=== PATIENT | female | born 1955 | race Caucasian/White ===

== ENCOUNTER → 2017-09-28 | Outpatient (CLI) | payer MEDICARE, OTHER ==
[~2017-09-28] MED LIST: ASPIRIN E.C. 8181 MG PO; AVINZA30 M1 PO; AVINZA60 MG PO; CIPRO 500MG TA500 MG PO; COLACE 100100 MG/CAP PO; COLESTIPOL1 GM PO; CRANBERRY FRUI405 MG PO; CRANBERRY1000 MG PO; CRESTOR5 MG PO; DAILY MULTI VIT1 TAB PO; FERROUS SU325 MG/TAB PO; FLAGYL500 MG PO; GLUCOPHAGE500 MG/TAB PO; HUMALOG100 U/ML SQ; LANTUS100 U/ML SC; LANTUS100 U/ML SQ; LASIX 20MG TABL20 MG PO; LISINOPRIL5 MG PO; LORTAB 10/500 51 TAB PO; LORTAB 5/500 501 TAB PO; LYRICA 25MG CAP25 MG PO; MIRALAX17 GM/DOSE PO; MULTIVITAMIN FO1 CAP PO; NEXIUM 40MG40 MG PO; NEXIUM40 MG PO; NORCO 325 MG-51 TAB PO; NORCO 325 MG-7.1 TAB PO; OYSTER CALCIUM1 TA4 PO; OYSTER SHELL CA1 TA6 PO; PERCOCET 325 MG1 TA2 PO; ROXICODONE 55 MG/TAB PO; TOPAMAX25 M1 PO; TOPAMAX50 MG PO; VITAMIN C500 MG PO; [UNRECOGNIZED DRUG - OTHER]
== END ==
LOC: MC.RAD 09:57
DX: Z12.31 Encounter for screening mammogram for malignant neoplasm of breast (principal)

== ENCOUNTER → 2018-03-23 | Outpatient (CLI) | payer MEDICARE, OTHER | LOC: COL.RAD 09:26 | DX: R59.0 Localized enlarged lymph nodes (principal); K76.9 Liver disease, unspecified; K57.30 Diverticulosis of large intestine without perforation or abscess without bleeding; Z90.410 Acquired total absence of pancreas | CPT/HCPCS: Q9967 ==

== ENCOUNTER → 2018-07-04 | Outpatient (CLI) | payer MEDICARE, OTHER | LOC: COL.RAD 10:00 | DX: M51.36 Other intervertebral disc degeneration, lumbar region (principal); J98.4 Other disorders of lung; R59.0 Localized enlarged lymph nodes; R16.0 Hepatomegaly, not elsewhere classified; N28.1 Cyst of kidney, acquired; M46.96 Unspecified inflammatory spondylopathy, lumbar region; Z85.89 Personal history of malignant neoplasm of other organs and systems; Z90.49 Acquired absence of other specified parts of digestive tract; Z90.410 Acquired total absence of pancreas; Z90.710 Acquired absence of both cervix and uterus; Z90.81 Acquired absence of spleen; Z98.890 Other specified postprocedural states | CPT/HCPCS: Q9967 ==

== ENCOUNTER → 2018-09-20 | Outpatient (CLI) | payer MEDICARE, OTHER | LOC: COL.RAD 07:47 | DX: M25.552 Pain in left hip (principal) | CPT/HCPCS: J3301; Q9967 ==

== ENCOUNTER → 2019-02-21 | Outpatient (CLI) | payer MEDICARE, OTHER | LOC: COL.RAD 08:06 | DX: C7A.098 Malignant carcinoid tumors of other sites (principal); C78.7 Secondary malignant neoplasm of liver and intrahepatic bile duct; Z90.49 Acquired absence of other specified parts of digestive tract; Z90.81 Acquired absence of spleen | CPT/HCPCS: Q9967 ==

== ENCOUNTER → 2020-02-04 | Outpatient (CLI) | payer MEDICARE, OTHER | LOC: MC.RAD 12-03 11:00 | DX: Z12.31 Encounter for screening mammogram for malignant neoplasm of breast (principal) ==

== ENCOUNTER → 2020-02-25 | Outpatient (CLI) | payer MEDICARE, OTHER | LOC: COL.RAD 02-24 08:30 | DX: C7A.098 Malignant carcinoid tumors of other sites (principal); R19.09 Other intra-abdominal and pelvic swelling, mass and lump; Z90.710 Acquired absence of both cervix and uterus; Z96.642 Presence of left artificial hip joint | CPT/HCPCS: Q9967 ==

== ENCOUNTER 2020-04-02 06:57 | Day surgery (SDC) | payer MEDICARE, OTHER ==
[~2020-04-02] VITALS: Ht 152.4 cm; Wt 88.4 kg
[2020-04-02] MEDS ORDERED: CYMBALTA 30MG30 MG PO (07:50)
[2020-04-02] MEDS ORDERED: ZETIA 10MG TAB10 MG PO (07:51)
[2020-04-02] MEDS ORDERED: NORCO 325 MG-101 TAB PO (07:52)
[2020-04-02] MEDS ORDERED: NOVOLOG FLEX100 U/ML SQ (07:52)
[2020-04-02] MEDS ORDERED: CLARITIN 1010 MG/TAB PO (07:53)
[2020-04-02] MEDS ORDERED: LANTUS SOLOS100 U/ML SQ (07:53)
[2020-04-02] MEDS ORDERED: HYZAAR 50-12.1 UDTAB PO (07:54)
[2020-04-02] MEDS ORDERED: TOPAMAX 100MG100 M1 PO (07:55)
[2020-04-02] MEDS ORDERED: MAGOX PO (07:55)
[2020-04-02] MEDS ORDERED: IMITREX 25MG TA25 MG PO (07:55)
[2020-04-02] MEDS ORDERED: TURMERIC500 MG PO (07:56)
[2020-04-02] MEDS ORDERED: MASON NATURAL2000 IU PO (07:56)
[2020-04-02] MEDS ORDERED: VITAMIN C500 MG PO (07:56)
[2020-04-02 07:57] VITALS: BP 148/77; PULSE 92; TEMP 98.4
--- NOTE | 2020-04-02 08:20 | NUR ---
Patient's blood glucose reading was 254 when checked pre-op. This result with told to Archie Mann CRNA and no further orders received at this time.
--- NOTE | 2020-04-02 09:07 | NUR ---
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 She is escorted to the restroom by staff, voids, and returns to room.
[2020-04-02 12:00] VITALS: BP 119/56; PULSE 86; TEMP 98.5
--- NOTE | 2020-04-02 12:00 | NUR ---
Patient arrives to [facility] bay 5 via cart, accompanied by MERCHANDISER RETAIL REPRESENTATIVE Corina. She is alert, oriented. She has pain 7/10, stabbing, at the surgical site. She is resting in her bed. Her daughter is at the bedside. Monitoring is applied - VSS and WNL on 2L nasal cannula. Her operative site is convered with a dry dressing, scant amount of bloody drainage on the dressing. Stable from OR per MERCHANDISER RETAIL REPRESENTATIVE. Lights are dimmed for comfort. Will continue to monitor.
[2020-04-02 12:15] VITALS: BP 111/46; PULSE 86
[2020-04-02 12:30] VITALS: BP 127/53; PULSE 88
--- NOTE | 2020-04-02 12:30 | NUR ---
VSS and WNL on room air. Patient is eating a muffin/drinking water. She requests and receives milk and crackers. She ambulates to the restroom, voids large amount clear/yellow urine, and returns to room. Her gait is steady with 1:1 assist. Her surgical dressing remains unchanged.
[2020-04-02 12:45] VITALS: BP 117/48; PULSE 91
--- NOTE | 2020-04-02 12:45 | NUR ---
VSS on room air. Patient is given PO [place] for pain. She is resting comfortably. She denies needs at this time.
[2020-04-02 13:00] VITALS: BP 117/45; PULSE 90
--- NOTE | 2020-04-02 13:00 | NUR ---
VSS and WNL on room air. Resting comfortably in room. Given more milk.
--- NOTE | 2020-04-02 13:30 | NUR ---
Patient ambulates to the restroom with steady gait, voids, and returns to room.
--- NOTE | 2020-04-02 13:47 | NUR ---
Discharge criteria has been met. Discharge instructions are discussed with the patient and her daughter. They deny any questions and verbalize understanding. PIV is removed with catheter intact and hemostasis achieved. THe patient is changing to her clothing with her daughter's assistance.
--- NOTE | 2020-04-02 14:00 | NUR ---
Patient is escorted to the exit via wheelchair. She is discharged to home with ride in private vehicle at 1400.
== END 2020-04-02 14:00 | disposition home or self-care (01) ==
LOC: SDCO 06:57
DX: R22.2 Localized swelling, mass and lump, trunk (principal); C7B.8 Other secondary neuroendocrine tumors; C7A.8 Other malignant neuroendocrine tumors; E11.9 Type 2 diabetes mellitus without complications; K21.9 Gastro-esophageal reflux disease without esophagitis; R05 Cough; I10 Essential (primary) hypertension; G43.909 Migraine, unspecified, not intractable, without status migrainosus; F17.210 Nicotine dependence, cigarettes, uncomplicated; E78.00 Pure hypercholesterolemia, unspecified; Z90.49 Acquired absence of other specified parts of digestive tract; Z79.899 Other long term (current) drug therapy; Z88.5 Allergy status to narcotic agent
CPT/HCPCS: J1170; J2250; J2405; J2704; J3010; J7030

== ENCOUNTER → 2020-06-02 | Outpatient (CLI) | payer MEDICARE, OTHER ==
[~2020-06-02] MED LIST changes: +CLARITIN 1010 MG/TAB PO; +CYMBALTA 30MG30 MG PO; +HYZAAR 50-12.1 UDTAB PO; +IMITREX 25MG TA25 MG PO; +LANTUS SOLOS100 U/ML SQ; +MAGOX PO; +MASON NATURAL2000 IU PO; +NORCO 325 MG-101 TAB PO; +NOVOLOG FLEX100 U/ML SQ; +TOPAMAX 100MG100 M1 PO; +TURMERIC500 MG PO; +ZETIA 10MG TAB10 MG PO
== END ==
LOC: COL.RAD 08:04
DX: C7A.8 Other malignant neuroendocrine tumors (principal); C78.7 Secondary malignant neoplasm of liver and intrahepatic bile duct; Z98.890 Other specified postprocedural states
CPT/HCPCS: Q9967

== ENCOUNTER → 2020-09-09 | Outpatient (CLI) | payer MEDICARE, OTHER ==
[~2020-09-09] MED LIST changes: +DIFLUCAN200 MG PO
== END ==
LOC: DIA.ED
DX: E11.9 Type 2 diabetes mellitus without complications (principal); Z79.4 Long term (current) use of insulin; E66.8 Other obesity

== ENCOUNTER → 2020-09-16 | Outpatient (CLI) | payer MEDICARE, OTHER ==
[~2020-09-16] MED LIST changes: +NOVOLIN R100 UNIT/1 SQ
== END ==
LOC: DIA.ED 08:33
DX: E11.9 Type 2 diabetes mellitus without complications (principal); Z79.4 Long term (current) use of insulin
CPT/HCPCS: G0270

== ENCOUNTER → 2020-09-22 | Outpatient (CLI) | payer MEDICARE, OTHER ==
[~2020-09-22] MED LIST changes: -NOVOLIN R100 UNIT/1 SQ
== END ==
LOC: COL.RAD 07:56
DX: C7A.098 Malignant carcinoid tumors of other sites (principal); C78.7 Secondary malignant neoplasm of liver and intrahepatic bile duct; E11.9 Type 2 diabetes mellitus without complications; Z90.49 Acquired absence of other specified parts of digestive tract; Z90.89 Acquired absence of other organs
CPT/HCPCS: Q9967

== ENCOUNTER → 2020-10-14 | Outpatient (CLI) | payer MEDICARE, OTHER ==
[~2020-10-14] MED LIST changes: +NOVOLIN R100 UNIT/1 SQ
== END ==
LOC: DIA.ED
DX: E11.9 Type 2 diabetes mellitus without complications (principal); Z79.4 Long term (current) use of insulin; E66.8 Other obesity

== ENCOUNTER 2020-11-01 20:09 | Inpatient (IN) | payer MEDICARE, OTHER ==
[~2020-11-01] VITALS: Ht 144.8 cm; Wt 85.0 kg
[~2020-11-01 20:09] MED LIST changes: -NOVOLIN R100 UNIT/1 SQ
[2020-11-01 20:53] LABS: BASO % 0.3 % (0.0-2.0); GRAN # 6.8 (1.4-6.5); GRAN % 70.3 % (42.2-75.2); HEMATOCRIT 45.1 % (37.0-47.0); LYMPH # 2.5 (1.2-3.4); LYMPH % 26.1 % (20.0-51.0); MEAN CELL VOLUME 88 fl (80.0-100.0); MEAN CORPUSCULAR HEMOGLOBIN 29 pg (27.0-31.0); MEAN CORPUSCULAR HGB CONC 33 g/dl (33.0-37.0); MEAN PLATELET VOLUME 9.2 fl (7.4-10.4); MONO # 0.3 (0.1-0.6); PLATELET COUNT 598 K/mm3 (130-400); RED BLOOD COUNT 5.13 M/mm3 (4.10-5.30); REDCELL DISTRIBUTION WIDTH-CV 14.1 % (11.5-14.5)
[2020-11-01 21:02] LABS: ALANINE AMINOTRANSFERASE 37 U/L (4-34); ALBUMIN 3.8 gm/dL (3.5-5.0); ALKALINE PHOSPHATASE 114 U/L (50-136); ANION GAP 10 mmol/L (7-16); AST,SGOT 72 U/L (15-37); BILIRUBIN,TOTAL 0.6 mg/dL (0.0-1.0); BLOOD UREA NITROGEN 36 mg/dL (7-17); CALCIUM 8.6 mg/dL (8.4-10.2); CARBON DIOXIDE 30 mmol/L (22-30); CHLORIDE 91 mmol/L (98-107); CREATININE, serum 1.35 (0.52-1.25); GLUCOSE 268 mg/dL (74-106); SODIUM 131 mmol/L (137-145); TOTAL PROTEIN 7.4 gm/dL (6.4-8.2)
[2020-11-01 21:08] LABS: C-REACTIVE PROTEIN > 9.0 mg/dL (0.0-0.9); POTASSIUM 2.9 mmol/L (3.4-5.0)
[2020-11-01 21:12] LABS: TROPONIN-I < 0.012 ng/mL (0.000-0.035)
[2020-11-01 21:42] LABS: ARTERIAL BLD GAS O2 SATURATION 92.6 % (92-100); ARTERIAL BLOOD GAS BASE EXCESS 5.5 (-2-2); ARTERIAL BLOOD GAS HCO3 28.8 meq/L (22-26); ARTERIAL BLOOD GAS PCO2 37.8 mmHg (35-45); ARTERIAL BLOOD GAS PO2 62.8 mmHg (80-100)
[2020-11-01] MEDS ORDERED: NOVOLIN R100 UNIT/1 SQ (22:34)
--- NOTE | 2020-11-01 23:30 | NUR ---
Pt arrived to ICU 3 at this time via cart with ALEXIA Vasquez. Pt able to transfer from the cart to the ICU bed with assistance of one. Pt oriented to room and call light system. Pt is resting in bed and denies needs. Call light within reach.
[2020-11-01 23:38] VITALS: O2SAT 95
[2020-11-01 23:46] VITALS: O2SAT 91
[2020-11-01 23:53] VITALS: O2SAT 86
[2020-11-01 23:54] VITALS: O2SAT 85
[2020-11-01 23:57] VITALS: O2SAT 83
[2020-11-01 23:58] VITALS: O2SAT 83
[2020-11-02] VITALS (632 sets, daily range): BP systolic 137–160; BP diastolic 62–75; PULSE 66–85; TEMP 97.7–99.2; O2SAT 45–100
--- NOTE | 2020-11-02 01:10 | NUR ---
Assessment complete. Pt is AXO X3, states she has some pain "to the left side of my body" but denies the desire for pain medication. Breathing is even and unlabored but pt will desat while lying flat. Head of bed raised and O2 increased to 12L via oxymask. RA IV is free of complications. Pt assisted to the bathroom and back to bed at this time and she denies further needs. Call light within reach.
[2020-11-02 07:03] LABS: BASO % 0.2 % (0.0-2.0); GRAN # 8.7 (1.4-6.5); GRAN % 82.7 % (42.2-75.2); HEMATOCRIT 40.9 % (37.0-47.0); HEMOGLOBIN 13.7 g/dl (12.5-16.0); LYMPH # 1.5 (1.2-3.4); LYMPH % 14.6 % (20.0-51.0); MEAN CELL VOLUME 87 fl (80.0-100.0); MEAN CORPUSCULAR HEMOGLOBIN 29 pg (27.0-31.0); MEAN CORPUSCULAR HGB CONC 34 g/dl (33.0-37.0); MEAN PLATELET VOLUME 9.1 fl (7.4-10.4); MONO # 0.2 (0.1-0.6); PLATELET COUNT 656 K/mm3 (130-400); RED BLOOD COUNT 4.72 M/mm3 (4.10-5.30); REDCELL DISTRIBUTION WIDTH-CV 13.9 % (11.5-14.5)
[2020-11-02 07:11] LABS: ALBUMIN 3.2 gm/dL (3.5-5.0); BILIRUBIN,TOTAL 0.4 mg/dL (0.0-1.0); CALCIUM 8.1 mg/dL (8.4-10.2); CREATININE, serum 0.91 (0.52-1.25); POTASSIUM 3.2 mmol/L (3.4-5.0); TOTAL PROTEIN 6.6 gm/dL (6.4-8.2)
--- NOTE | 2020-11-02 09:00 | NUR ---
UPDATE GIVEN TO PT'S DAUGHTER.
--- NOTE | 2020-11-02 09:56 | NUR ---
Pt had reported getting a chemotherapy shot every week but when I contacted Dr Juarez's office, she recieved lanreopide q 8 weeks with the last dose being 09/04/2020. There were no other meds reported as chemotherapy.
--- NOTE | 2020-11-02 14:00 | NUR ---
Electrolytic Etcher attended clinical rounds. After rounds, TODD attemepted to contact the patient via phone to complete intake, no answer. SW contacted the patient's daughter, Tamanna #[phone] via cell phone to complete intake. The patient lives in [place] with Tamanna. The patient does not use DME and is independent. The patient's PCP is Dr. Rosa Mccarty and patient receives medications from [facility] and [facility] in . The patient does not have advanced directives in the EMR. Tamanna states they are complete and designate her. Tamanna has covid and has no means to send a copy of advanced directives. The patient has a son who lives in . The plan is for the patient to return home at discharge. PT/OT to be ordered. The patient is currently on 10L of oxygen, does not use it at baseline. Will continue to monitor for safest discharge disposition.
[2020-11-02 23:01] LABS: COLLECTION METHOD CLEAN CATCH
[2020-11-02 23:08] LABS: PH 6 (5-8); SQUAMOUS EPITHELIAL 0-2 /hpf; URINE APPEARANCE Clear; URINE BACTERIA None Seen /hpf; URINE BILIRUBIN Negative (NEGATIVE); URINE BLOOD Negative (NEGATIVE); URINE COLOR Yellow; URINE GLUCOSE Negative (NEGATIVE); URINE KETONE Trace (NEGATIVE); URINE LEUKOCYTE ESTERASE Negative (NEGATIVE); URINE NITRATE Negative (NEGATIVE); URINE PROTEIN(semi-quant) 2+ (NEGATIVE); URINE RBC 0-2 /hpf; URINE UROBILINOGEN Negative (NEGATIVE)
[2020-11-03] VITALS (747 sets, daily range): BP systolic 110–154; BP diastolic 54–77; PULSE 61–97; TEMP 97.2–98.6; O2SAT 77–100
[2020-11-03 06:33] LABS: BASO % 0.1 % (0.0-2.0); EOS % 0.1 % (0-4.0); GRAN # 10.2 (1.4-6.5); GRAN % 78.6 % (42.2-75.2); HEMATOCRIT 40.3 % (37.0-47.0); HEMOGLOBIN 13.4 g/dl (12.5-16.0); LYMPH # 2.3 (1.2-3.4); LYMPH % 17.7 % (20.0-51.0); MEAN CELL VOLUME 89 fl (80.0-100.0); MEAN CORPUSCULAR HEMOGLOBIN 30 pg (27.0-31.0); MEAN CORPUSCULAR HGB CONC 33 g/dl (33.0-37.0); MEAN PLATELET VOLUME 8.8 fl (7.4-10.4); MONO # 0.4 (0.1-0.6); MONO % 3.1 % (1.7-9.3); PLATELET COUNT 730 K/mm3 (130-400); RED BLOOD COUNT 4.52 M/mm3 (4.10-5.30); REDCELL DISTRIBUTION WIDTH-CV 14.3 % (11.5-14.5)
[2020-11-03 06:48] LABS: CREATININE, serum 0.81 (0.52-1.25); MAGNESIUM 2.1 mg/dL (1.6-2.3); POTASSIUM 3.4 mmol/L (3.4-5.0)
--- NOTE | 2020-11-03 07:10 | NUR ---
RECEIVED REPORT FROM ALEXIA LANDIS. PT RESTING EASILY ON 10L VIA OXYMASK. VSS. CALL LIGHT WITHIN REACH.
--- NOTE | 2020-11-03 09:55 | NUR ---
DISCUSSED PT'S CURRENT STAUTS AND POC WITH DR HIGHTOWER. JEAN ESPOSITO RECEIVED. PHYSICIAN TO BEDSIDE FOR ASSESSMENT.
--- NOTE | 2020-11-03 17:30 | NUR ---
SPOKE TO MEGA VELOZ ABOUT WHY PT MOVED TO ICU. DAUGHTER WAS ALSO CONCERNED WITH DPOA PAPERWORK STATING THAT HE SAYS OKAY TO BE AN ORGAN DONOR BUT DAUGHTER STATES HE HAS TOLD HER IN THE PAST THAT HE DOES NOT WANT TO BE AN ORGAN DONOR. DAUGHTER ALSO STATES THAT HER LAST NAME ON THE PAPERWORK IS NOT CORRECT. WHEN ATTEMPTED TO GET DAUGHTER'S ACTUAL LAST NAME, DAUGHTER REFUSED TO GIVE IT TO RN AND STATES "I DON'T WANT YOU TO FIX THAT PAPER, I WANT IT COMPLETELY REDONE." EXPLAINED TO DAUGHTER THAT RN WILL PASS ALONG TO HAVE SW CONTACT DAUGHTER AGAIN TOMORROW TO GET PAPERWORK FIXED. DAUGHTER AGREES TO THAT AND WANTS TO MAKE SURE IT IS KNOWN THAT PT IS NOT AN ORGAN DONOR.
--- NOTE | 2020-11-03 18:10 | NUR ---
PT UP TO TOILET IN ROOM. PT STATES SHE DOES NOT FEEL VERY GOOD. PT ASSISTED QUICKLY BACK TO BED AND PLACED ON MONTIOR AND NOTED 75% POX ON 15L HFNC. OXYMASK APPLIED ONTO OF HFNC OF 10L. POX INCREASES TO 92% SLOWLY. RT NOTIFIED AND STATES WILL BRING AN AIRVO. PT UPDATED ON POC, VERBALIZED UNDERSTANDING. ALSO SPOKE WITH PT ABOUT USING BSC FOR AWHILE UNTIL HER STRENGTH IMPROVES, PT AGREES. CELESTINA SERRANO NOTIFIED OF INCIDENT AND AGREES TO AIRVO.
--- NOTE | 2020-11-03 19:30 | NUR ---
Received report from ALEXIA Santana. Patient resting quietly in bed. Vitals within normal limits. Patient continues to wear AirVo at 45L 60% FiO2, tolerating well; oxygen saturations low-mid 90s. Patient denies any pain or discomfort at this time. Requires standby to one-person assist to use bedside commode. No further needs noted at this time.
[2020-11-04] VITALS (217 sets, daily range): BP systolic 115–169; BP diastolic 55–75; PULSE 72–92; TEMP 97.9–98.8; O2SAT 88–100
--- NOTE | 2020-11-04 02:37 | NUR ---
PATIENT IS CALM IN BED ON O2 VIA AIRVO AT 45L.DUE MEDICATION GIVEN,ASSESSMENT DONE.DENIES PAIN.TRIED TO START A NEW IV ACCESS HOUSE INFORMED.NO NEEDS AT THIS TIME
--- NOTE | 2020-11-04 07:05 | NUR ---
RECEIVED REPORT FROM ALEXIA TAPIA. PT SLEEPING AT THIS TIME ON AIRVO OF 45L AND 60%. VSS. CALL LIGHT WITHIN REACH.
[2020-11-04 08:24] LABS: BASO % 0.1 % (0.0-2.0); GRAN # 8.5 (1.4-6.5); GRAN % 72.1 % (42.2-75.2); HEMATOCRIT 41.5 % (37.0-47.0); HEMOGLOBIN 13.4 g/dl (12.5-16.0); LYMPH # 2.9 (1.2-3.4); LYMPH % 24.8 % (20.0-51.0); MEAN CELL VOLUME 91 fl (80.0-100.0); MEAN CORPUSCULAR HEMOGLOBIN 29 pg (27.0-31.0); MEAN CORPUSCULAR HGB CONC 32 g/dl (33.0-37.0); MEAN PLATELET VOLUME 8.9 fl (7.4-10.4); MONO # 0.3 (0.1-0.6); MONO % 2.7 % (1.7-9.3); PLATELET COUNT 782 K/mm3 (130-400); RED BLOOD COUNT 4.58 M/mm3 (4.10-5.30); REDCELL DISTRIBUTION WIDTH-CV 14.8 % (11.5-14.5)
[2020-11-04 08:38] LABS: CALCIUM 8.1 mg/dL (8.4-10.2); CREATININE, serum 0.74 (0.52-1.25); POTASSIUM 3.9 mmol/L (3.4-5.0)
--- NOTE | 2020-11-04 09:00 | NUR ---
UPDATED DR PLUMMER ON PT NOW ON AIRVO SINCE LAST NIGHT. PHYSICIAN REQUESTS DR VOGT TO CONSULT. DR VOGT MADE AWARE.
--- NOTE | 2020-11-04 10:32 | NUR ---
Personnel And Payroll Technician faxed referral to [facility].
--- NOTE | 2020-11-04 12:30 | NUR ---
SPOKE TO PT ABOUT NEEDING TO EAT TO HELP IMPROVE HER STRENGHT AND HEALING PROCESS. PT STATES "OKAY." AND WE MAKE PLANS FOR BREAKFAST AND LUNCH TODAY TO TRY FOODS SHE LIKES. PT DOES NOT EAT EITHER MEAL HARDLY. SPOKE TO PT'S DAUGHTER ROLO ABOUT THE CONCERN. DAUGHTER STATES SHE WILL TALK TO HER MOM AND SEE IF SHE CAN HELP. INFORMED PT THAT HER DAUGHTER HAS ATTEMPTED TO CALL HER AND WOULD LIKE TO HER. PT STATES "OKAY" AND ROLLS BACK OVER TO SLEEP.
--- NOTE | 2020-11-04 16:15 | NUR ---
INFORMED PT OF TRANSFER TO 304. ENCOURAGED PT TO CALL HER DAUGHTER BUT PT JUST ROLLS OVER AND CLOSES HER EYES AND WAITS FOR RN TO TRANSFER HER.
--- NOTE | 2020-11-04 16:21 | NUR ---
ATTEMPTED TO CALL REPORT TO [facility].
--- NOTE | 2020-11-04 16:50 | NUR ---
REPORT GIVEN TO ALEXIA GOMEZ ON MEDICAL. PT TO TRANSFER IN ON 12L VIA [facility]. ALL PERSONAL BELONGINGS SENT WITH PT.
[2020-11-05 03:47] VITALS: BP 113/68; PULSE 85; TEMP 98.9
--- NOTE | 2020-11-05 05:27 | NUR ---
PATIENT HAD A CALM NIGHT NO CONCERNS RAISED,DENIES PAIN.O2 THERAPY CONTINED.NO NEEDS AT THIS TIME.
--- NOTE | 2020-11-05 07:31 | NUR ---
PATIENT ABLE TO WEAN FROM 70% TO 60% FIO2 THIS AM WITH SPO2 93%. LITER FLOW STILL AT 40LPM, WILL TRY GREEN HF CANULA NEXT ROUND.
[2020-11-05 09:04] VITALS: BP 121/52; PULSE 80; TEMP 98.7
--- NOTE | 2020-11-05 09:33 | NUR ---
Assessment completed, alert/oriented, vital signs stable, denies pain, no resp.difficulty while at rest, patient remains on Airvo at this time, good air exchange bilaterally wit diminished bases and some basilar crackles as well on the right side, heart RRR/distal pulses are palpable, patient has a very flat affect and appears to be severely drepressed/ I am told in report she recently was given a cancer diagnosis, she refused breakfast, she denies other needs at this time
[2020-11-05 12:37] VITALS: BP 126/38; PULSE 94; TEMP 99
--- NOTE | 2020-11-05 13:39 | NUR ---
With [facility]'s COVID algorithm, they cannot take the patient until 11/08, if a bed is available. TODD faxed updates to Katerine at [facility]. TODD contacted and updated the patient's daughter, Tamanna. Tamanna is hopeful they can wean the patient off of oxygen here, but is open to [facility]. SW to continue to follow.
[2020-11-05 16:40] VITALS: BP 154/57; PULSE 89; TEMP 98.4
[2020-11-05 19:40] VITALS: BP 176/68; PULSE 96; TEMP 98.3
[2020-11-05 21:19] VITALS: BP 147/57
--- NOTE | 2020-11-05 21:39 | NUR ---
PATIENT IS CALM HAS A FLAT AFFECT,DUE MEDS GIVEN,ASSESSMENT DONE.DENIES PAIN.OFFERED GRAPE JUICE.NO OTHER NEEDS AT THIS TIME.
[2020-11-06] VITALS (7 sets, daily range): BP systolic 114–157; BP diastolic 65–80; PULSE 84–91; TEMP 98–99.4
--- NOTE | 2020-11-06 05:38 | NUR ---
PATIENT REPORTS SHE HAD A CALM NIGHT,ON AIRVO AT 60L SATTING ABOVE 90%.DENIES PAIN.NO NEEDS AT THIS TIME.
[2020-11-06 06:27] LABS: CREATININE, serum 0.74 (0.52-1.25); POTASSIUM 3.3 mmol/L (3.4-5.0)
[2020-11-06 06:54] LABS: BASO % 0.2 % (0.0-2.0); EOS # 0.1 (0.0-0.7); EOS % 0.4 % (0-4.0); GRAN # 11.7 (1.4-6.5); GRAN % 84.1 % (42.2-75.2); HEMOGLOBIN 12.2 g/dl (12.5-16.0); LYMPH # 1.7 (1.2-3.4); LYMPH % 12.2 % (20.0-51.0); MEAN CELL VOLUME 87 fl (80.0-100.0); MEAN CORPUSCULAR HEMOGLOBIN 29 pg (27.0-31.0); MEAN CORPUSCULAR HGB CONC 34 g/dl (33.0-37.0); MEAN PLATELET VOLUME 9.1 fl (7.4-10.4); MONO # 0.3 (0.1-0.6); MONO % 2.4 % (1.7-9.3); RED BLOOD COUNT 4.17 M/mm3 (4.10-5.30); REDCELL DISTRIBUTION WIDTH-CV 14.6 % (11.5-14.5)
[2020-11-06 07:11] LABS: HEMATOCRIT 36.1 % (37.0-47.0)
[2020-11-06 07:12] LABS: PLATELET COUNT 595 K/mm3 (130-400)
--- NOTE | 2020-11-06 09:51 | NUR ---
Assessment completed, alert/oriented, vital signs stable, denies pain, patient continues to have very flat affect and is hard to communicate with, she reports breathing is about the same, she is now on 60L/75% on airvo, breathing is labored with exertion and sats drop from short ambulation, discussed plan of care with , patient is eating very little but drinking fluids well, blood sugars controlled, will contineu to monitor, denies needs, call light in reach
--- NOTE | 2020-11-06 14:55 | NUR ---
Katerine, at [facility], reports that the earliest they would be able to take the patient is on Monday and that they may have a bed available on Monday. Katerine requested updates. TODD faxed updates to Katerine. TODD staffed with RT. RT reports that the patient would be able to transport, via EMS with a bipap or CPAP. SW contacted and updated the patient's daughter, Tamanna. Tamanna is agreeable to the plan.
--- NOTE | 2020-11-06 22:43 | NUR ---
PATIENT RECEIVED CALM,DUE MEDS GIVEN,DENIES PAIN,NO NEEDS AT THIS TIME
[2020-11-07] VITALS (239 sets, daily range): BP systolic 115–152; BP diastolic 21–73; PULSE 84–115; TEMP 98.5–100; O2SAT 87–99
--- NOTE | 2020-11-07 05:52 | NUR ---
PATIENT REPORTS A CALM NIGHT ON O2 THERAPY VIA AIRVO,DENIES PAIN NO NEEDS AT THIS TIME.
--- NOTE | 2020-11-07 09:38 | NUR ---
Pt assessment complete. Pt is laying in bed upon entry, she answers questions but overall has a flat affect and does not communicate with staff well. Denies pain. When asked if SOB, she reports "not really". Breathing is tachypneic on Airvo. Pt encouraged to sit up while eating and drinking, pt continues not sit up any further. Pt denies any needs. Call light within reach.
--- NOTE | 2020-11-07 10:56 | NUR ---
In patient's room after she had returned to bed from the bathroom with PT. Pt very tachypneic and SOB. O2 sat obtained 62% on Airvo and breathing 44 BPM, RT contacted immediately for bipap and Dr. Cowan notified. He came in and spoke with the patient, Morphine administered as ordered. House and Dr. Sparks notified. Pt on bipap now with O2 sat of 65-70%. Pt stating she does not want to be intubated. Awaiting bed in ICU at this time.
--- NOTE | 2020-11-07 13:40 | NUR ---
Patient arrives to ICU on BiPap. Once moved over to ICU bed patient is hooked up to monitor. Patient currently 90% SPO2 on 100% FiO2. Denies pain. Alert and oriented. Patient verbalizes understanding need of BiPap will discuss AirVo options once SPO2 stabilized at a rate for proper perfusion. Daughter bedside with patient.
--- NOTE | 2020-11-07 13:52 | NUR ---
Pt transferred down to ICU at this time. Pt still on bipap O2 sat 81% prior to transfer. Pt's daughter with patient at this time. Asking if she can have a break from bipap. Discussed plan.
--- NOTE | 2020-11-07 19:39 | NUR ---
Received report from ALEXIA Doe. All medications verified and all questions answered. Patient laying in bed. Patient daughter in room at this time. VSS. Will resume care at this time.
[2020-11-08] VITALS (564 sets, daily range): BP systolic 116–170; BP diastolic 50–99; PULSE 80–100; TEMP 97.6–99.1; O2SAT 85–100
[2020-11-08 07:23] LABS: HEMATOCRIT 37.6 % (37.0-47.0); HEMOGLOBIN 12.5 g/dl (12.5-16.0); MEAN CELL VOLUME 87 fl (80.0-100.0); MEAN CORPUSCULAR HEMOGLOBIN 29 pg (27.0-31.0); MEAN CORPUSCULAR HGB CONC 33 g/dl (33.0-37.0); MEAN PLATELET VOLUME 9.4 fl (7.4-10.4); PLATELET COUNT 563 K/mm3 (130-400); RED BLOOD COUNT 4.33 M/mm3 (4.10-5.30); REDCELL DISTRIBUTION WIDTH-CV 14.9 % (11.5-14.5)
[2020-11-08 07:33] LABS: CALCIUM 8.6 mg/dL (8.4-10.2); CREATININE, serum 0.87 (0.52-1.25); MAGNESIUM 2.1 mg/dL (1.6-2.3); POTASSIUM 3.4 mmol/L (3.4-5.0)
[2020-11-08 07:45] LABS: BAND 5 % (0-10); LYMPHOCYTE 4 % (20.0-51.0); NEUTROPHILS 91 % (42.0-75.2); PLATELET ESTIMATE INCREASED (NORMAL)
[2020-11-08 07:46] LABS: TARGET CELLS 1+
[2020-11-08 07:47] LABS: ANISOCYTOSIS 1+; HELMET CELLS 1+; POIKILOCYTOSIS 1+
--- NOTE | 2020-11-08 11:40 | NUR ---
1123-Report given to Cristin HALE 1133- Pt up to room 323 via wheelchair. PT moved over to recliner with 1 assist without incident. TREVA Pruitt with patient assessing vitals. Care assumed by Cristin HALE at this time.
--- NOTE | 2020-11-08 13:21 | NUR ---
Dr. Cowan notified of elevated D-dimer. No new orders received at this time.
--- NOTE | 2020-11-08 16:02 | NUR ---
SW informed by Dr. Sparks patient is currently too ill to transfer to [facility]. SW notified Lakisha at [facility] of information provided. TODD will continue to follow.
--- NOTE | 2020-11-08 20:00 | NUR ---
Assessment complete. Pt is AXO X3, denies having any pain at this time. Breathing is labored at rest while on BiPAP. Hinojosa to DD is free of complications. New IV started to LA is free of complications. Pt is resting quietly in the bed at this time and she denies further needs. Call light within reach.
[2020-11-09] VITALS (183 sets, daily range): BP systolic 83–162; BP diastolic 48–100; PULSE 93–145; TEMP 97.8; O2SAT 38–99
--- NOTE | 2020-11-09 03:45 | NUR ---
Versed gtt inititiated at 5mg/hr LAURA Weaver APRN.
--- NOTE | 2020-11-09 03:50 | NUR ---
Fentanyl gtt increased to 50 mcg/hr LAURA Weaver APRN.
--- NOTE | 2020-11-09 03:55 | NUR ---
Versed gtt increased to 10 mg/hr LAURA Weaver APRN.
--- NOTE | 2020-11-09 04:21 | NUR ---
No palpable pulse or auscultated heart and lungs sounds noted. pronounced at this time by this nurse and STEPHEN Weaver.
--- NOTE | 2020-11-09 05:02 | NUR ---
[facility] notified of patient . Referral #:[id number]. Patient not eligable for donation. Body released to [facility] in [place].
--- NOTE | 2020-11-09 05:10 | NUR ---
0257 - PT NOTED TO HAVE RR IN THE 50'S AND O2 SATS 60% ON BIPAP. STEPHEN GUILLORY, NOTIFIED. 0305 - STEPHEN GUILLORY, AT THE BEDSIDE. RT JASON, AT THE BEDSIDE. 0315 - CALLED PT'S DAUGHTER AND UPDATED HER ABOUT THE PT. REQUEST THAT SHE RETURN TO THE HOSPITAL. 0350 - DAUGHTER AT THE BEDSIDE.
--- NOTE | 2020-11-09 06:05 | NUR ---
home here for transport.
== END 2020-11-09 06:10 | disposition expired | DRG 177 ==
LOC: COL.ER 20:09 → ICU 21:02 → COL.ER 23:43 → ICU 11-02 17:10 → PEDS 11-04 19:36 → ICU 11-07 14:51
PROVIDERS: Internal Medicine; Internal Medicine Pulmonary Disease; Nurse Practitioner Primary Care; ADMIT Hospitalist
PROC: XW033E5 Introduction of Remdesivir Anti-infective into Peripheral Vein, Percutaneous Approach, New Technology Group 5 (ICD-10-PCS; principal; 2020-11-02)
PROC: XW13325 Transfusion of Convalescent Plasma (Nonautologous) into Peripheral Vein, Percutaneous Approach, New Technology Group 5 (ICD-10-PCS; 2020-11-02)
DX: U07.1 COVID-19 (principal); J96.01 Acute respiratory failure with hypoxia; J12.82 Pneumonia due to coronavirus disease 2019; C25.9 Malignant neoplasm of pancreas, unspecified; C78.7 Secondary malignant neoplasm of liver and intrahepatic bile duct; Z66 Do not resuscitate; Z51.5 Encounter for palliative care; E78.5 Hyperlipidemia, unspecified; I10 Essential (primary) hypertension; E11.649 Type 2 diabetes mellitus with hypoglycemia without coma; E87.6 Hypokalemia; F32.9 Major depressive disorder, single episode, unspecified; K21.9 Gastro-esophageal reflux disease without esophagitis; G43.909 Migraine, unspecified, not intractable, without status migrainosus; M19.90 Unspecified osteoarthritis, unspecified site; D47.3 Essential (hemorrhagic) thrombocythemia; Z88.6 Allergy status to analgesic agent; Z90.49 Acquired absence of other specified parts of digestive tract; Z90.710 Acquired absence of both cervix and uterus; Z79.4 Long term (current) use of insulin; Z79.82 Long term (current) use of aspirin; Z87.891 Personal history of nicotine dependence
CPT/HCPCS: 99223-AI; 99232-AI; 99233-AI; C9113; J0456; J0696; J1100; J1650; J1815; J1940; J2060; J2250; J2270; J3010; J3480; J7030; J7050; J8540; Q9967